=== PATIENT | female | born 1995 | race African-American/Black ===

== ENCOUNTER 2017-07-05 12:54 | Emergency (ER) | payer MEDICAID ==
[~2017-07-05] VITALS: Ht 165.1 cm; Wt 72.6 kg
[2017-07-05] MEDS ORDERED: IBUP600T16 PO (13:22)
[2017-07-05] MEDS ORDERED: CYCL-331 PO (13:22)
--- NOTE | 2017-07-05 13:23 | PHYS DOC ---
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 Patient reports took ibuprofen earlier today and has had minimal relief in her discomfort. Patient denies any weakness or upper or lower 70s. Patient has a loss of bowel or bladder function. Patient reports when she walks the pain gets worse. Patient has any fevers shakes chills nausea vomiting diarrhea dysuria frequency urgency. Review of systems: Constitutional: Denies fever or chills Eyes: Denies change in visual acuity, redness, or eye pain HENT: Denies nasal congestion or sore throat Respiratory: Denies cough or shortness of breath All other systems were reviewed and found to be within normal limits, except as documented in this note. Physical exam: Constitutional: Well developed, well nourished, no acute distress, non-toxic appearance. HENT: Normocephalic, atraumatic, bilateral external ears normal, nose normal. Eyes: PERRLA, EOMI, conjunctiva normal, no discharge. Neck: Normal range of motion, no tenderness, supple, no stridor. Cardiovascular: Heart rate regular rhythm, Lungs & Thorax: Bilateral breath sounds clear to auscultation Abdomen: No abdominal distention. Skin: Warm, dry, no erythema, no rash. Back: Normal spinal curvature Extremities: No tenderness, no cyanosis, no clubbing, ROM intact, no edema. Neurologic: Alert and oriented X 3, normal motor function, normal sensory function, no focal deficits noted. Psychologic: Affect normal, judgement normal, mood normal. Patient's ER physical exam was most unremarkable: Tenderness to palpation to her left lower back. Patient is no evidence of retroperitonitis. Patient's exam is not consistent with a kidney stone or urinary tract infection. Pain with any kind rotation of her back or bending of her back. Labs reviewed: Assessment and plan: 1. Low back pain: Most likely secondary to muscle strain. Patient be discharged home with Flexeril and ibuprofen. Patient is neurologically intact. Patient not present with any signs or symptoms consistent with cord injury, UTI , bilateral, kidney stone. Allergies Allergies Allergies Coded Allergies Type Severity Reaction Last Updated Verified shrimp Allergy Unknown 07/05/17 Yes Physical Exam Physical Exam EKG EKG [] Radiology/Procedures Radiology/Procedures [] Course & Med Decision Making Course & Med Decision Making Pertinent Labs and Imaging studies reviewed. (See chart for details) [] Dragon Disclaimer Dragon Disclaimer This electronic medical record was generated, in whole or in part, using a voice recognition dictation system. Departure Departure: Impression: Primary Impression: Low back pain Disposition: HOME, SELF-CARE Condition: IMPROVED Patient Instructions: Low Back Sprain with [facility] Scripts Ibuprofen (IBUPROFEN) 600 Mg Tablet 600 MG PO QID Y for PAIN, #20 Prov: BRITT MENENDEZ MD 07/05/17 Cyclobenzaprine Hcl (CYCLOBENZAPRINE HCL) 10 Mg Tablet 1 TAB PO TID, #30 TAB Prov: BRITT MENENDEZ MD 07/05/17 BRITT MENENDEZ MD Jul 05, 2017 13:23
[2017-07-05] MEDS ORDERED: CYCLOBENZAPRINE 10 MG TABLET. PO ONE (13:45)
[2017-07-05 14:14] VITALS: BP 126/68
== END 2017-07-05 14:13 | disposition home or self-care (01) ==
LOC: ER 12:54
DX: M54.5 Low back pain (principal); Z91.013 Allergy to seafood
CPT/HCPCS: 99283